=== PATIENT | female | born 1980 | race Caucasian/White ===

== ENCOUNTER 2017-02-14 19:23 | Emergency (ER) | payer OTHER, MEDICAID ==
[~2017-02-14] VITALS: Ht 170.2 cm; Wt 78.0 kg
[~2017-02-14 19:23] MED LIST: OXYC1SOL5 PO; PRENTAB16
[2017-02-14 19:24] VITALS: BP 156/67; PULSE 64; RESP 20; TEMP 97.6; O2SAT 100
--- NOTE | 2017-02-14 19:34 | PD ---
Physical Exam Time Seen by Provider: 19:32 Narrative 36 y/o female here with epigastric abdominal pain for 30-45 minutes after drinking water. Hx of gerd/gastritis, this feels similar. Uses nexium. Vital signs reviewed. Seen at triage desk. Awaiting bed placement. Data Data Last Documented VS Vital Signs Date Time Temp Pulse Resp B/P Pulse Ox O2 Delivery O2 Flow Rate FiO2 02/14/17 19:24 97.6 64 20 156/67 100 MDM Medical Record Reviewed: Yes Supervised Visit with SRAVANI: No Tony Byrd Feb 14, 2017 19:34
--- NOTE | 2017-02-14 20:11 | PD ---
HPI Chief Complaint: Abdominal Pain Time Seen by Provider: 20:10 Travel History International Travel<30 days: No Contact w/Intl Traveler<30days: No Traveled to known affect area: No History of Present Illness HPI 36 year-old female with history of GERD presents to the emergency department for evaluation of nausea, vomiting, and epigastric pain that began 45 minutes after drinking water. Currently she states that she has no pain but is nauseous. States her symptoms were similar to GERD in the past. She was out of town this weekend and states she ate a lot of food she normally does not. She takes Nexium normally. Denies any fever or chills. None diarrhea. No abdominal pain other than in the epigastrium. No chest enteritis. No difficulty breathing. No other symptoms to report. PFSH Past Medical History Autoimmune Disease: No Cancer: No Diabetes: No Diminished Hearing: No Gastrointestinal Disorders: Yes (gerd) GERD: Yes (ESOPHAGITIS) Genitourinary: No Immune Disorder: No Kidney Stones: No Reproductive: Yes (multiple miscarriage) Immunizations Current: Yes Renal Failure: No Sickle Cell Disease: No Thyroid Disease: No ?: Unknown LMP: 02/06/17 : 3 Para: 0 Miscarriage: 1 : 1 Past Surgical History Abdominal Surgery: No Cardiac Surgery: No Endocrine Surgery: No Eye Surgery: No Genitourinary Surgery: No Gynecologic Surgery: No Thoracic Surgery: No Social History Alcohol Use: Yes (rare) Tobacco Use: No Substance Use: No Allergies-Medications (Allergen,Severity, Reaction): Coded Allergies: penicillin G (Unverified Allergy, Severe, 02/14/17) shellfish derived (Unverified Allergy, Severe, 02/14/17) Reported Meds & Prescriptions Reported Meds & Active Scripts Active Oxycodone/Acetaminophen 5 mg/325 mg 1 Tab Tab 1 Tab PO Q4H PRN Reported Complete ( Vit W/ Ferrous Fumara) Complete Tab Review of Systems Except as stated in HPI: all other systems reviewed are Neg Physical Exam Narrative GENERAL: Well-nourished female patient, no acute distress SKIN: Focused skin assessment warm/dry. HEAD: Atraumatic. Normocephalic. EYES: Pupils equal and round. No scleral icterus. No injection or drainage. ENT: No nasal bleeding or discharge. Mucous membranes pink and moist. NECK: Trachea midline. No JVD. CARDIOVASCULAR: Regular rate and rhythm. No murmur appreciated. RESPIRATORY: No accessory muscle use. Clear to auscultation. Breath sounds equal bilaterally. GASTROINTESTINAL: Abdomen soft, non-tender, nondistended. No guarding. No rebound tenderness. Hepatic and splenic margins not palpable. MUSCULOSKELETAL: No obvious deformities. No clubbing. No cyanosis. No edema. NEUROLOGICAL: Awake and alert. No obvious cranial nerve deficits. Motor grossly within normal limits. Normal speech. PSYCHIATRIC: Appropriate mood and affect; insight and judgment normal. Data Data Last Documented VS Vital Signs Date Time Temp Pulse Resp B/P Pulse Ox O2 Delivery O2 Flow Rate FiO2 02/14/17 19:24 97.6 64 20 156/67 100 Orders Complete Blood Count With Diff (02/14/17 19:34) Comprehensive Metabolic Panel (02/14/17 19:34) Lipase (02/14/17 19:34) Urinalysis - C+S If Indicated (02/14/17 19:34) Ed Urine Pregnancytest Poc (02/14/17 19:34) Ondansetron Odt (Zofran Odt) (02/14/17 21:00) Al-Mag Hy-Si 40-40-4 Mg/Ml Liq (Mag-Al P (02/14/17 21:00) Lidocaine 2% Viscous (Xylocaine 2% Visco (02/14/17 21:00) Labs Laboratory Tests Test 02/14/17 02/14/17 19:50 20:20 White Blood Count 10.8 TH/MM3 Red Blood Count 4.76 MIL/MM3 Hemoglobin 13.8 GM/DL Hematocrit 41.6 % Mean Corpuscular Volume 87.4 FL Mean Corpuscular Hemoglobin 28.9 PG Mean Corpuscular Hemoglobin 33.1 % Concent Red Cell Distribution Width 13.3 % Platelet Count 228 TH/MM3 Mean Platelet Volume 9.9 FL Neutrophils (%) (Auto) 55.1 % Lymphocytes (%) (Auto) 36.1 % Monocytes (%) (Auto) 7.6 % Eosinophils (%) (Auto) 0.8 % Basophils (%) (Auto) 0.4 % Neutrophils # (Auto) 5.9 TH/MM3 Lymphocytes # (Auto) 3.9 TH/MM3 Monocytes # (Auto) 0.8 TH/MM3 Eosinophils # (Auto) 0.1 TH/MM3 Basophils # (Auto) 0.0 TH/MM3 CBC Comment DIFF FINAL Differential Comment Sodium Level 140 MEQ/L Potassium Level 3.6 MEQ/L Chloride Level 104 MEQ/L Carbon Dioxide Level 30.5 MEQ/L Anion Gap 6 MEQ/L Blood Urea Nitrogen 21 MG/DL Creatinine 0.89 MG/DL Estimat Glomerular Filtration 71 ML/MIN Rate Random Glucose 113 MG/DL Calcium Level 8.8 MG/DL Total Bilirubin 0.3 MG/DL Aspartate Amino Transf 48 U/L (AST/SGOT) Alanine Aminotransferase 35 U/L (ALT/SGPT) Alkaline Phosphatase 82 U/L Total Protein 7.8 GM/DL Albumin 3.9 GM/DL Lipase 177 U/L Urine Color YELLOW Urine Turbidity HAZY Urine pH 7.5 Urine Specific [place] 1.025 Urine Protein TRACE mg/dL Urine Glucose (UA) NEG mg/dL Urine Ketones NEG mg/dL Urine Occult Blood NEG Urine Nitrite NEG Urine Bilirubin NEG Urine Urobilinogen LESS THAN 2.0 MG/DL Urine Leukocyte Esterase LARGE Urine WBC 2 /hpf Urine Squamous Epithelial 5 /hpf Cells Urine Bacteria RARE /hpf Microscopic Urinalysis Comment CULT NOT INDICATED MDM Medical Decision Making Medical Screen Exam Complete: Yes Emergency Medical Condition: Yes Medical Record Reviewed: Yes Differential Diagnosis Gastritis versus gastroenteritis versus esophagitis versus GERD Narrative Course 36 year-old female presents to the emergency department for evaluation. Patient appears without distress. She is nauseous now. She is given Zofran ODT and GI cocktail. Upon reassessment, patient reports marked improvement in her symptoms. She will be discharged at this time. She agrees to return immediately with any acute worsening of symptoms. Diagnosis Primary Impression: GERD Referrals: Server Engineer Primary Care Physician Patient Instructions: Diet for Stomach Ulcers and Gastritis (ED), General Instructions Additional Instructions: Follow-up with your primary care provider Seek gastroenterology evaluation Continue medication as already prescribed Return immediately with any acute worsening symptoms Med/Other Pt SpecificInfo: No Change to Meds Disposition: 01 DISCHARGE HOME Condition: Stable BedoyaCindy moseley LISA Feb 14, 2017 20:10
[2017-02-14 20:15] LABS: AUTOMATED NEUTROPHIL # 5.9 TH/MM3 (1.8-7.7); BASOPHIL % 0.4 % (0.0-2.0); EOSINOPHIL # 0.1 TH/MM3 (0-0.4); EOSINOPHIL % 0.8 % (0.0-4.0); HEMATOCRIT 41.6 % (35.0-46.0); HEMO FLAGS DIFF FINAL; LYMPH % 36.1 % (9.0-44.0); LYMPHOCYTE # 3.9 TH/MM3 (1.0-4.8); MEAN CELL VOLUME 87.4 FL (80.0-100.0); MEAN CORPUSCULAR HEMOGLOBIN 28.9 PG (27.0-34.0); MEAN CORPUSCULAR HGB CONC 33.1 % (32.0-36.0); MONO % 7.6 % (0.0-8.0); NEUT % 55.1 % (16.0-70.0); PLATELET COUNT 228 TH/MM3 (150-450); RED BLOOD COUNT 4.76 MIL/MM3 (4.00-5.30); RED CELL DISTRIBUTION WIDTH 13.3 % (11.6-17.2); WHITE BLOOD COUNT 10.8 TH/MM3 (4.0-11.0)
[2017-02-14 20:24] LABS: ANION GAP 6 MEQ/L (5-15); AST (GOT) 48 U/L (15-37); BICARBONATE 30.5 MEQ/L (21.0-32.0); BLOOD UREA NITROGEN 21 MG/DL (7-18); CHLORIDE 104 MEQ/L (98-107); GLOMERULAR FILTRATION RATE 71 ML/MIN (>89); POTASSIUM 3.6 MEQ/L (3.5-5.1); SODIUM (NA) 140 MEQ/L (136-145)
[2017-02-14 20:25] LABS: ALT (GPT) 35 U/L (10-53)
[2017-02-14 20:27] LABS: ALKALINE PHOSPHATASE 82 U/L (45-117); TOTAL BILIRUBIN ADULT 0.3 MG/DL (0.2-1.0)
[2017-02-14] MEDS ORDERED: ALUMINUM/MAGNESIUM/SIMETH 30 ML CUP PO ONE (21:00)
[2017-02-14] MEDS ORDERED: ONDANSETRON ODT 4 MG TAB PO ONE (21:00)
[2017-02-14] MEDS ORDERED: LIDOCAINE VISCOUS 2% SOLN 15 ML UDC PO ONE (21:00)
[2017-02-14 21:20] LABS: BACTERIA, URINE RARE /hpf; BLOOD, URINE NEG (NEG); COMMENT (UR) CULT NOT INDICATED; CULTURE IF INDICATED CULT NOT INDICATED; GLUCOSE,URINE NEG (NEG); KETONE, URINE NEG (NEG); NITRITE,URINE NEG (NEG); PH, URINE 7.5 (5.0-8.5); SQUAMOUS EPITHELIAL CELL URINE 5 /hpf (0-5); URINE COLOR YELLOW (YELLW/STRAW)
== END 2017-02-14 22:33 | disposition home or self-care (01) ==
LOC: NEPE 19:23
DX: K21.9 Gastro-esophageal reflux disease without esophagitis (principal)
CPT/HCPCS: 80053; 81001; 83690; 84703; 85025; 99283

== ENCOUNTER → 2017-05-09 | Day surgery (SDC) | payer OTHER ==
[~2017-05-09] VITALS: Ht 170.2 cm; Wt 68.1 kg
[~2017-05-09] MED LIST changes: +ACETAMINOPHEN 1000 MG/100 ML 100 ML IV SCH; +BUPIVACAINE/EPINEPHRINE 0.25% 50 ML VIAL ONE; +CHLORHEXIDINE GLUCONATE 2 % 1 PACK (2 CLOTHS) TOPICAL PRN; +DO NOT ADM ANY ANTICOAGULANT DRUGS PRN; +ESMOLOL HCL 100 MG/10 ML VIAL IV ONE; +GLYCOPYRROLATE 1 MG/5 ML SYRINGE IV PUSH ONE; +INSULIN HUMAN REGULAR 1,000 UNITS/10 ML VIAL SQ PRN; +KETOROLAC TROMETHAMINE 30 MG/ML (IVP) VIAL IV PUSH ONE; +LACTATED RINGER'S 1000 ML IV PRN; +LIDOCAINE HCL 1% PF 5 ML AMPULE OTHER ONE; +METOPROLOL TARTRATE 25 MG TAB PO PRN; +MIDAZOLAM HCL 2 MG/2 ML VIAL ONE; +MORPHINE SULFATE 4 MG/ML INJ IV ONE; +MORPHINE SULFATE 4 MG/ML INJ IV PUSH PRN; +NEOSTIGMINE 3 MG/3 ML SYR IV ONE; +ONDANSETRON HCL 4 MG/2 ML VIAL IV ONE; +ONDANSETRON HCL 4 MG/2 ML VIAL IV PUSH PRN; +POVIDONE IODINE 5% (ANTISEPSIS KIT) 4 APPLICATIONS EACH NARE PRN; +PROPOFOL 200 MG/20 ML AMP IV ONE; +ROCURONIUM INJ 50 MG/5 ML SYRINGE IV PUSH ONE; +SODIUM CHLORID 0.9% 500 ML IV PRN; +VANCOMYCIN 1,000 MG/NS 250ML (for <70 kg) IV SCH; +ePHEDrine/NS 25 MG/5 ML SYR IV ONE; +metroNIDAZOLE 500 MG INJ 100 ML IV SCH; +oxyCODONE/ACETAMINOPHEN 5 MG/325 MG TAB ONE; +oxyCODONE/ACETAMINOPHEN 5 MG/325 MG TAB PO PRN
[2017-05-09 09:20] LABS: ANION GAP 6 MEQ/L (5-15); AST (GOT) 14 U/L (15-37); BICARBONATE 27.8 MEQ/L (21.0-32.0); BLOOD UREA NITROGEN 11 MG/DL (7-18); CHLORIDE 105 MEQ/L (98-107); GLOMERULAR FILTRATION RATE 85 ML/MIN (>89); POTASSIUM 3.7 MEQ/L (3.5-5.1); SODIUM (NA) 139 MEQ/L (136-145)
[2017-05-09 09:23] LABS: ALKALINE PHOSPHATASE 78 U/L (45-117); ALT (GPT) 31 U/L (10-53); TOTAL BILIRUBIN ADULT 0.7 MG/DL (0.2-1.0)
--- NOTE | 2017-05-09 10:00 | PD.OP ---
cc: Thomas Urbina MD Operative Report Date of Surgery: May 09, 2017 Preoperative Diagnosis: (1) Symptomatic cholelithiasis Postoperative Diagnosis: (1) Symptomatic cholelithiasis Procedure: Laparoscopic cholecystectomy Anesthesia: GABRIEL Surgeon: Thomas Urbina Dispatcher Radioactive Waste Disposal(s): Trista GARCIA Operation and Findings: Complications: None apparent EBL: 10 cc Operative findings: Chronic gallbladder inflammation. Small stones. Procedure in detail: The patient was taken to the operating room and placed in the supine position. General endotracheal anesthesia was induced. The abdomen was prepped and draped in usual sterile fashion and a surgical timeout was performed to verify correct patient procedure and site. Appropriate perioperative antibiotics were administered. Local anesthetic was injected in the skin and subcutaneous tissue superior to the umbilicus and a 5 mm incision performed. The abdomen was entered using the Optiview 5 mm trocar with direct laparoscopic visualization. The abdomen was then insufflated to 15 mmHg with CO2 gas which the patient tolerated well. Next a 12 mm port was placed in the epigastrium and two 5 mm ports in the right upper quadrant and right lateral abdomen. The patient was placed in reverse Trendelenburg position and turned slightly to the left. Attention was turned to the right upper quadrant and the dome of the gallbladder was grasped and retracted cephalad. The infundibulum was retracted laterally to expose Calot's triangle. Blunt dissection and judicious use of electrocautery was used to expose the cystic duct and the cystic artery directly entering the gallbladder. The cystic artery was divided with Harmonic scalpel. Two clips were placed proximally on the cystic duct and one distally and it was transected. The gallbladder was then removed from the liver bed using electrocautery. Hemostasis was achieved. The gallbladder was then removed from the abdomen using an Endo Catch bag. The clips were in place on the cystic duct stump with no bile leakage. At this point, the abdomen was allowed to desufflate and trochars were removed. The fascia at the 12 mm port site was closed with 0 Vicryl suture. Skin was closed with subcuticular 4-0 Monocryl as well as Dermabond. The patient tolerated the procedure well and was extubated and taken to PACU in stable condition. All sponge and instrument counts were correct. Thomas Urbina MD May 09, 2017 10:00
[2017-05-09 11:30] VITALS: BP 116/64; PULSE 57; RESP 20; TEMP 98.3; O2SAT 100
== END | disposition home or self-care (01) ==
LOC: HSDC 08:01
PROVIDERS: ATTEND Surgery
DX: K80.10 Calculus of gallbladder with chronic cholecystitis without obstruction (principal)
CPT/HCPCS: 00790; 47562; 80053; 88304; J0131; J1885; J2250; J2270; J2405; J2710; J3010; J3370; J7050; J7120